=== PATIENT | female | born 1970 | race Caucasian/White ===

== ENCOUNTER → 2022-06-26 | Outpatient (CLI) | payer OTHER, SELFPAY ==
--- NOTE | 2022-06-27 05:54 | PFTCOMP_ITS ---
COMPLETE PULMONARY FUNCTION TEST INTERPRETATION Brief HPI: Patient is a 52-year-old female, currently under the care of Cara Pearson, who presents to [facility] for complete pulmonary function tests secondary to diagnosis of COPD. Respiratory therapist reports good effort and reproducible results. Interpretation: Forced expiration spirometry shows a moderate large airways obstructive ventilatory defect with an FEV1 of 67% predicted. There is no significant bronchodilator response by strict ATS criteria. Spirograms are of good quality and plateau slowly, indicating slowly emptying areas of the lungs. The respiratory flow volume loop shows decreased expiratory flow rates at all lung volumes consistent with airway obstruction. Lung volumes by body plethysmography show a normal total lung capacity at 4.53 L, 99% predicted. All other lung volumes are within normal limits. Diffusion capacity by carbon monoxide is normal at 98% predicted. The airway resistance is elevated. No previous pulmonary function tests were available for review. Impression: Irreversible moderate large airways obstructive ventilatory defect with preserved lung volumes and a fusion capacity, and a pattern consistent with chronic bronchitis.
== END | disposition home or self-care (01) ==
PROVIDERS: PCP Nurse Practitioner Family; Visit Provider Nurse Practitioner Family
DX: J44.9 Chronic obstructive pulmonary disease, unspecified (principal)
CPT/HCPCS: 94060; 94726; 94729

== ENCOUNTER → 2022-11-26 | Outpatient (CLI) | payer OTHER, SELFPAY ==
--- NOTE | 2022-11-26 15:05 | CT_ITS ---
STUDY: LOW DOSE CT LUNG CANCER SCREENING REASON FOR EXAM: Female, 52 years old. Screening. 30 pack-year history smoking, quit 2 years ago. RADIATION DOSAGE (If Supplied By Facility): CTDIvol = ( 2.39 ) mGy, DLP = ( 77.13 ) mGycm TECHNIQUE: No contrast was administered. Low dose technique was utilized (average mAS-38 and kVp 120). 1.25 mm axial source images with a slice interval of 1.25-mm were reconstructed in lung windows. 2.5 mm coronal sagittal reformats. COMPARISON: No relevant prior comparison study available NODULES: No suspicious pulmonary nodules. Emphysema: Diffuse upper lung emphysematous change, most prominent on the right. No consolidation, effusion, pneumothorax. Endobronchial lesion: Mild bilateral peribronchial thickening without endobronchial mass or debris Aorta: No aortic ectasia. Scattered mild aortic atherosclerosis. CORONARY ARTERIES: Mild multivessel coronary atherosclerosis Heart: No cardiomegaly. Trace anterior pericardial fluid which is likely physiologic. Pulmonary artery: No pulmonary arterial enlargement Mediastinal nodes: No mediastinal or bulky hilar adenopathy. Other chest and abdominal findings: No acute finding CT/Low Dose CT Lung Screening IMPRESSION: No suspicious pulmonary nodules. Upper lung predominant moderate emphysematous change with mild peribronchial thickening as can be seen with acute or chronic inflammation. Mild aortic and coronary atherosclerosis Lung-RADS category 1 - Continue annual screening with LDCT in 12 months. IMPORTANT NOTES FOR USE: ACR Lung-RADS Version 1.1 Assessment Categories Release Date: 2018 Category: Coded 0-4 bases on nodule(s) with highest degree of suspicion. Negative screen is defined as categories 1 and 2; a positive screen is defined as categories 3 and 4. Category 3 and 4A nodules that are unchanged on interval CT should be coded as category 2, and individuals returned to screening in 12 months. Category 4X: Category 3 or 4 nodules with additional imaging findings that increase the suspicion of lung cancer, such as spiculation, GGN that doubles in size in 1 year, enlarged lymph notes, etc. Category Modifiers: S (significant finding unrelated to lung cancer) Electronically Signed: Antonio Gomez MD at 8:25 EDT ,
== END | disposition home or self-care (01) ==
LOC: CT 15:04
PROVIDERS: PCP Nurse Practitioner Family; Referring Provider Internal Medicine Critical Care Medicine; Visit Provider Internal Medicine Critical Care Medicine
DX: Z12.2 Encounter for screening for malignant neoplasm of respiratory organs (principal); J44.9 Chronic obstructive pulmonary disease, unspecified; F17.210 Nicotine dependence, cigarettes, uncomplicated; E66.9 Obesity, unspecified
CPT/HCPCS: 71271

== ENCOUNTER → 2024-07-22 | Outpatient (CLI) | payer OTHER, SELFPAY ==
--- NOTE | 2024-07-22 17:23 | CT_ITS ---
PROCEDURE: LOW DOSE CT LUNG SCREENING REASON FOR EXAM: Smoker TECHNIQUE: Low Dose CT Lung Screening without contrast COMPARISON: 11/26/2022 FINDINGS: Lungs/Pleura:Moderate emphysematous disease is present, mostly in the upper lung galvez. There is mild multifocal mucous plugging in the distal bronchials of the lower lobes with mild associated peribronchial thickening.No pleural effusion or pneumothorax. Cardiovascular:The heart is normal in size.There are moderate scattered coronary artery calcifications. The ascending thoracic aorta is ectatic measuring 4 cm in diameter.The distal thoracic aorta is tortuous with mild scattered atherosclerotic calcifications present. Pericardium:No effusion. Mediastinum:Unremarkable. Lymph nodes:No lymph node enlargement identified on this noncontrast CT. Bones:No acute osseous abnormality.There is a chronic insufficiency fracture at the L2 superior endplate. The bones are osteopenic. Soft tissues:Unremarkable. Upper abdomen:Unremarkable. CT/Low Dose CT Lung Screening IMPRESSION: 1. No suspicious pulmonary nodules. Lung-RADS category 1: Negative. Screening low-dose CT of the chest recommended in 12 months. 2. Multifocal mucous plugging present in the distal bronchials of the lower lob es with mild associated peribronchial thickening, possibly due to infectious/inflammatory airways disease. 3. Moderate emphysematous disease. Reading Location: [facility]
== END | disposition home or self-care (01) ==
LOC: CT 17:04
PROVIDERS: PCP Nurse Practitioner Family; Referring Provider Nurse Practitioner Acute Care; Visit Provider Nurse Practitioner Acute Care
DX: Z12.2 Encounter for screening for malignant neoplasm of respiratory organs (principal); F17.210 Nicotine dependence, cigarettes, uncomplicated
CPT/HCPCS: 71271